=== PATIENT | female | born 1945 | race Caucasian/White ===

== ENCOUNTER 2017-06-22 18:32 | Inpatient (IN) ==
[2017-06-22] MEDS ORDERED: Ipratropium/Albuterol Neb 3 ML IH ONE (18:39)
[2017-06-22] MEDS ORDERED: methylPREDNISolone 125 MG/2 ML VIAL IVP ONE (18:39)
[2017-06-22] MEDS ORDERED: Aspirin 81 MG TAB.CHEW PO ONE (18:43)
--- NOTE | 2017-06-22 18:44 | Emergency Department Note ---
Disposition Clinical Impression: Acute exacerbation of chronic obstructive airways disease, Hypoxia Disposition: Admitted As Inpatient Condition: Fair Time of Disposition: 20:45 SOB HPI - General Chief Complaint: ED Shortness of Breath/Dyspnea Stated Complaint: JUSTIN/shoulder pain Time Seen by Provider: 06/22/17 18:34 Source: patient, family, EMS Mode of arrival: EMS Limitations: no limitations Nursing Notes Reviewed: Yes Vital Signs Reviewed: Yes - History of Present Illness 71-year-old female history of lung cancer in remission for 2 years now radiation approximately 2 years ago presents to the ED with shortness of breath and difficulty in breathing. Patient states this started 2 days ago she said it came on all of a sudden. She has been coughing and having a hard time catching her breath. She has tried her albuterol inhaler with no help. She is not on any oxygen. Patient has never had to be intubated for COPD. Patient states she has never diagnosed as COPD by matches that she has it. Patient is having chest pain says is mainly on the left side but nonradiating says it mainly hurts when she takes a deep breath and is worse when she takes a big deep breath. Said nothing is helping her pain. She is pain is a dull ache approximately 5 out of 10. Patient states that she has been coughing but there has been no productive sputum. She states there is no fevers. She was nauseous on the right in but thinks is most likely due to the squad arrived but there has been no vomiting. Patient otherwise is not having any complaints including headaches, blurry vision, neck pain, back pain, abdominal pain, pain with urination, changes in bowel movements, pain or tingling going down the arms or legs or any other generalized weakness. - Related Data Allergies Allergy/AdvReac Type Severity Reaction Status Date / Time Penicillins Allergy Rash Verified 06/22/17 20:59 Sulfa (Sulfonamide Allergy Rash Verified 06/22/17 20:59 Antibiotics) Review of Systems: 10 point review of systems done and negative unless otherwise stated in history of present illness. All systems ED: reviewed and negative except as stated. Review of Systems: As Per HPI Past Medical History - Past Medical History Attestation: Yes The following information was validated with the patient. Medical history: Reports: asthma, cancer, COPD Psychiatric history: Reports: no psych history - Social History Smoking Status: Current every day smoker Smokeless Tobacco Status: No Alcohol use: Reports: occasionally Drug use: Reports: none Physical Exam - General Limitations: no limitations General appearance: alert, in no apparent distress - Head Head exam: atraumatic, normocephalic, normal inspection - Eye Eye exam: Present: normal appearance, PERRL, EOMI - ENT ENT exam: normal exam, normal oropharynx, mucous membranes moist - Neck Neck exam: Present: normal inspection, full ROM, trachea midline - Chest Chest inspection: Present: normal inspection, symmetric chest wall rise - Respiratory Respiratory exam: Present: wheezes (Bilateral wheezes with decreased breath sounds bilaterally in all lung mercado.), accessory muscle use, prolonged expiratory phase. Absent: respiratory distress, stridor - Cardiovascular Cardiovascular exam: Present: regular rate, normal rhythm, normal heart sounds - Abdominal Exam Abdominal exam: Present: soft, Non-Tender. Absent: tenderness, distention, guarding, rebound, rigidity - Extremities Exam Extremities exam: Present: normal inspection, full ROM, normal capillary refill. Absent: tenderness, pedal edema - Expanded Lower Extremity Exam Neurovascular/Tendon exam: Present: normal capillary refill. Absent: pulse deficit, motor deficit, sensory deficit, tendon deficit - Back Exam Back exam: Present: normal inspection, full ROM. Absent: tenderness, CVA tenderness (R), CVA tenderness (L) - Neurological Exam Neurological exam: Present: alert, oriented X3 - Skin Skin exam: Present: warm, dry, intact, normal color Course Course Narrative: 71-year-old female presented to the ED with difficulty in breathing and shortness of breath. We will do normal COPD exacerbation workup including chest pain workup this will include a CBC, BMP, troponin, lactate, chest x-ray, EKG. We will give patient 125 mg's Solu-Medrol as well as triple DuoNeb treatment. We will reassess after treatment to see if her lung sounds are better. Patient does not meet SIRS criteria at this time. We will forego getting blood cultures and to get the chest x-ray back. Vital Signs Temperature 98.8 F 06/22/17 18:34 Pulse Rate 68 06/22/17 18:34 Respiratory Rate 18 06/22/17 18:34 Blood Pressure 176/95 06/22/17 18:34 O2 Sat by Pulse Oximetry 99 06/22/17 18:34 Temperature 98.1 F 06/24/17 08:44 Pulse Rate 86 06/24/17 08:44 Respiratory Rate 16 06/24/17 08:44 Blood Pressure 118/67 06/24/17 08:44 O2 Sat by Pulse Oximetry 94 06/24/17 08:44 Oxygen Delivery Oxygen Delivery Nasal Cannula Shortness of Breath/Dyspnea - MDM Narrative Medical decision making narrative: 71-year-old female presents to the ED with shortness of breath and hypoxia. She was found at home by EMS to have a oxygen saturation of 82% on room air. She does not have a history of being on oxygen. She has never on home oxygen. She was complaining of chest pain but had a normal troponin as well as normal EKG. This most likely is not cardiac in etiology. She says the pain was worse when she took deep breath. His most likely is pleuritic in etiology. She says she has never been diagnosed with COPD we will believe she has it. She has a history lung cancer with radiation to years ago and currently in remission. We did give patient triple duo nebs as well as Solu-Medrol which did help her breathe a lot better. She was much more clear but still had mild wheezes after that. At this time patient states that she did feel better but felt like she was unable to cough anything up. I did take her off oxygen when she was at 4 L here as she normally is on it at home and her sats dropped to 90% sitting in bed. So patient is hypoxic and felt admission was needed at this time. We did do chest x-ray which was normal not showing any pneumonia. All labs came back normal as well. Patient is being admitted to the hospital service I spoke with Dr. Boyd who agreed to admit the patient to the hospitalist service. Patient is admitted to the hospital service in stable condition. Chest X-Ray 06/22/17 18:39 IMPRESSION: Negative portable study. D/ / Harpre Castellanos Cha, MD / Harper Castellanos Cha, MD Interpreting Provider: Harper Castellanos Cha, MD - Medical Records Medical records reviewed: Yes I reviewed the patient's medical records. - Lab Data Lab results reviewed: Yes I reviewed the patient's lab results. Result diagrams: 06/24/17 01:29 06/24/17 01:29 Lab Results 06/22/17 06/22/17 06/22/17 Range/Units 18:55 18:55 18:55 WBC 9.1 (4.3-11.1) K/mcL RBC 4.78 (3.82-4.97) M/mcL Hgb 15.1 (11.5-15.4) g/dL Hct 45.0 H (35.3-44.9) % MCV 94.1 (83.0-100.0) fL MCH 31.6 (28.0-33.3) pg MCHC 33.6 (31.6-35.5) g/dL RDW 13.2 (11.5-14.5) % Plt Count 263 (140-400) K/mcL MPV 8.8 L (9.4-12.4) fL Immature Gran % 0.5 (0-4) % Seg Neutrophils % 54.4 % Lymphocytes % 24.7 % Monocytes % 7.1 % Eosinophils % 12.5 % Basophils % 0.8 % Neutrophils # 5.0 (1.6-8.9) K/mcL Lymphocytes # 2.3 (0.6-4.6) K/mcL Monocytes # 0.7 (0.0-1.3) K/mcL Eosinophils # 1.1 H (0.0-0.6) K/mcL Basophils # 0.1 (0.0-0.2) K/mcL Sodium 139 (136-145) mEq/L Potassium 4.7 H (3.5-4.5) mEq/L Chloride 102 (98-109) mEq/L Carbon Dioxide 26 (19-29) mEq/L BUN 11 (7-20) mg/dL Creatinine 0.59 (0.57-1.11) mg/dL Est GFR ( Amer) > 60 (> 60) Est GFR (Non-Af Amer) > 60 (> 60) BUN/Creatinine Ratio 19 (6-26) Glucose 97 (70-99) mg/dL Calculated Osmolality 287 (280-300) Calcium 9.0 (8.6-10.8) mg/dL Troponin I 0.01 (0-0.03) ng/mL B-Natriuretic Peptide (0-100) pg/mL 12/08/17 Range/Units 18:55 WBC (4.3-11.1) K/mcL RBC (3.82-4.97) M/mcL Hgb (11.5-15.4) g/dL Hct (35.3-44.9) % MCV (83.0-100.0) fL MCH (28.0-33.3) pg MCHC (31.6-35.5) g/dL RDW (11.5-14.5) % Plt Count (140-400) K/mcL MPV (9.4-12.4) fL Immature Gran % (0-4) % Seg Neutrophils % % Lymphocytes % % Monocytes % % Eosinophils % % Basophils % % Neutrophils # (1.6-8.9) K/mcL Lymphocytes # (0.6-4.6) K/mcL Monocytes # (0.0-1.3) K/mcL Eosinophils # (0.0-0.6) K/mcL Basophils # (0.0-0.2) K/mcL Sodium (136-145) mEq/L Potassium (3.5-4.5) mEq/L Chloride (98-109) mEq/L Carbon Dioxide (19-29) mEq/L BUN (7-20) mg/dL Creatinine (0.57-1.11) mg/dL Est GFR ( Amer) (> 60) Est GFR (Non-Af Amer) (> 60) BUN/Creatinine Ratio (6-26) Glucose (70-99) mg/dL Calculated Osmolality (280-300) Calcium (8.6-10.8) mg/dL Troponin I (0-0.03) ng/mL B-Natriuretic Peptide 87 (0-100) pg/mL - Radiology Data Radiology results reviewed: Yes I reviewed the patient's radiology results. - EKG Data EKG attestation: Yes I reviewed and interpreted this EKG. EKG results narrative: EKG done at 1844 reviewed myself and attending shows normal sinus rhythm at a rate of 64, WA interval 156, QRS 86, QTC 402 with a normal axis. There is no acute ST changes, no acute T-wave abnormalities, no signs of incarcerated hypertrophy, no signs of heart block, no signs of WPW/Brugada syndrome. There is no old EKG to compare with at this time. Attestation Statement - Attestation Attestation: I examined this patient and my medical decision-making was reviewed with the Resident Physician, Dr. Green. I agree with the documented findings, disposition and treatment plan as described except to the extent set forth below. Pt is a 71 yo wf with hx COPD and lung CA which is in remission who presents by EMS today with JUSTIN/SOB and found at home with RA pulse ox 82% and incr work of breathing. Pt denies any F/C, no URI sxs and only occasional nonprod cough. Pt also c/o L sided pleuritic CP which is worse with coughing.Pt is not on home O2 , and never been intubated for JUSTIN. I agree with pt's PE findings as documented. Pt arrived and was maintained on suppl O2 by NC, IV est, and labs sent, EKG performed, and pt was started on aerosols and IV steroids. Pt also had CXR performed. EKG showed SR without ischemia. Pt improved with pulm tx, but remained hypoxic on RA. CXR wnl. Labs unremarkable , including neg BNP and trop. Will admit pt for AECOPD wit hypoxia.
[2017-06-22 19:13] LABS: Basophils # 0.1 K/mcL (0.0-0.2); Basophils % 0.8 %; Eosinophils # 1.1 K/mcL (0.0-0.6); Eosinophils % 12.5 %; Hemoglobin 15.1 g/dL (11.5-15.4); Immature Granulocytes % 0.5 % (0-4); Lymphocytes # 2.3 K/mcL (0.6-4.6); Lymphocytes % 24.7 %; Mean Corpuscular HGB Conc 33.6 g/dL (31.6-35.5); Mean Corpuscular Hemoglobin 31.6 pg (28.0-33.3); Mean Corpuscular Volume 94.1 fL (83.0-100.0); Mean Platelet Volume 8.8 fL (9.4-12.4); Monocytes # 0.7 K/mcL (0.0-1.3); Monocytes % 7.1 %; Platelet Count 263 K/mcL (140-400); Red Blood Count 4.78 M/mcL (3.82-4.97); Red Cell Distribution Width 13.2 % (11.5-14.5); Segmented Neutrophils % 54.4 %
[2017-06-22 19:26] LABS: BUN/Creatinine Ratio 19 (6-26); Blood Urea Nitrogen 11 mg/dL (7-20); Carbon Dioxide 26 mEq/L (19-29); Chloride 102 mEq/L (98-109); Glucose 97 mg/dL (70-99); Osmolality,Calculated 287 (280-300); Potassium 4.7 mEq/L (3.5-4.5); Sodium 139 mEq/L (136-145); eGFR For African Americans > 60 (> 60); eGFR For Non-African Americans > 60 (> 60)
[2017-06-22] MEDS ORDERED: Acetaminophen 325 MG TABLET PO PRN (21:13)
[2017-06-22] MEDS ORDERED: Naloxone 0.4 MG/ML INJ IVP PRN (21:13)
[2017-06-22] MEDS ORDERED: *HR* Morphine 2 MG/ML SYRINGE IVP PRN (21:13)
[2017-06-22] MEDS ORDERED: Ondansetron 4 MG/2 ML VIAL IVP PRN (21:13)
[2017-06-22] MEDS ORDERED: Furosemide 20 MG TABLET PO PRN (21:16)
--- NOTE | 2017-06-22 21:19 | Internal Med History&Physical ---
Date of Encounter: 06/22/17 Time of Encounter: 21:10 Assessment and Plan (1) Acute exacerbation of chronic obstructive airways disease Current visit: Yes Status: Acute Acute hypoxic respiratory failure, secondary to acute exacerbation of COPD Continue DuoNeb breathing treatment, IV Solu-Medrol, O2 via NC Empiric IV Rocephin Chest x-ray - negative Cardiac telemetry, pulse ox, labs in a.m., monitor closely (2) DVT prophylaxis Current visit: Yes Status: Acute Heparin subcutaneous Internal Medicine - H&P: HPI Chief complaint: Shortness of breath Admitted From: Emergency Dept Plans for Post Hospital Care: Home History of present illness: Ms. Mena is a 71 year old female with past history of COPD, cancer and current smoker. Patient presents to the ED with complaints of shortness of breath and cough. Kimble in the room. Patient is awake and alert. Not in any distress. Able to provide all history. No family members at bedside. Patient states she developed shortness of breath and cough about 3-4 days ago. Symptoms gradually worsened. She states her cough is nonproductive. Thinks she does have some phlegm but is unable to bring it up. Symptoms worse with exertion. She has used her friend's nebulizer machine which has helped minimally. Patient decided to come to the ED because of worsening symptoms. She denies chest pain or vomiting or abdominal pain. No fever. Patient states symptoms are severe. No associated symptoms. No other acute complaints. Initial workup in the ED is negative. Chest x-ray is negative. Patient is being admitted for acute COPD exacerbation. Patient has been explained about her condition and plan of care detail. She understood and agreed. No unanswered questions. CODE STATUS full code. Past Med Surg Social Fam HX - Past Medical History Medical history: asthma, cancer, COPD Psychiatric history: no psych history - Social History Smoking Status: Current every day smoker Smokeless Tobacco Status: No Alcohol use: occasionally Drug use: none - Family History Father Hx Family Cardiac Disorders: No Hx Family Respiratory Disorders: Yes (COPD) Hx Family Cancer: No Hx Family GI Disorders: No Hx Family Genitourinary Disorders: No Hx Family Endocrine Disorder: No Hx Family Musculoskeletal Disorders: No Hx Family Neuromuscular Disorders: No Hx Family Neurologic Disorders: No Hx Family HEENT Disorders: No Hx Family Autoimmune Disorders: No Hx Family Reproductive Disorders: No Hx Family Psychosocial Disorders: No Hx Family Medical Disorders: No Internal Medicine - H&P: Meds Albuterol Sulfate [Ventolin Hfa] 2 puff IH Q4H PRN 06/22/17 [History] Furosemide [Lasix] 20 mg PO DAILY PRN 06/22/17 [History] Tramadol HCl [Ultram] 50 mg PO BID PRN 06/22/17 [History] 3 Allergy/AdvReac Type Severity Reaction Status Date / Time Penicillins Allergy Rash Verified 06/22/17 20:59 Sulfa (Sulfonamide Allergy Rash Verified 06/22/17 20:59 Antibiotics) All Systems PM: A 10-system review of systems was performed and is negative for pertinent findings except as documented above in the HPI. - Constitutional Constitutional: fatigue, no fever(s), no weakness - EENT Eyes: no blurry vision - Cardiovascular Cardiovascular ROS IM: dyspnea, dyspnea on exertion, no chest pain, no diaphoresis, no edema, no lightheadedness, no orthopnea, no palpitations, no syncope - Respiratory Respiratory: cough, dyspnea, dyspnea on exertion, wheezing, chest congestion, no hemoptysis - Gastrointestinal Gastrointestinal: no abdominal pain, no cramping, no diarrhea, no dyspepsia, no hematemesis, no hematochezia, no melena, no nausea, no vomiting - Genitourinary Genitourinary: no dysuria - Neurological Neurological ROS: no abnormal gait, no confusion, no dizziness, no loss of vision, no numbness, no tingling - Constitutional Vitals: Temp Pulse Resp BP Pulse Ox 98.8 F 98 20 140/66 97 06/22/17 18:34 06/22/17 20:11 06/22/17 20:11 06/22/17 20:11 06/22/17 20:11 General appearance: Present: cooperative, A&O X 3, pleasant, no acute distress, answers questions appropriately - Head Head exam: Present: atraumatic - Eye Eye exam: Present: EOMI - ENT ENT exam: Present: mucous membranes dry - Respiratory Respiratory exam: Present: wheezes (Mild bilateral). Absent: accessory muscle use, chest wall tenderness, rales, respiratory distress, rhonchi, tachypnea - Cardiovascular Cardiovascular exam: Present: RRR, +S1, +S2 - GI/Abdominal GI/Abdominal exam: Present: soft. Absent: distended, firm, guarding, tenderness - Extremities Exam Extremities exam: Present: radial pulses palpable and symmetrical. Absent: calf tenderness, cyanotic, pedal edema - Neurological Exam Neurological exam: Present: alert, oriented X3, no focal deficits. Absent: facial droop, speech deficit Internal Med - H&P Results - Labs CBC & Chem 7: 06/22/17 18:55 06/22/17 18:55
[2017-06-22] MEDS ORDERED: cefTRIAXone 1,000 MG in Water for inj. (sterile) 10 ML IVP SCH (22:00)
[2017-06-22] MEDS: Ipratropium/Albuterol Neb 3 ML IH SCH (23:24)
[2017-06-22] MEDS: MethylPREDNISolone 40 MG/ML VIAL IVP SCH (23:58)
[2017-06-23] MEDS: Nicotine 14 MG PATCH.TD24 TD SCH ×2 (00:31→07:44)
[2017-06-23] MEDS: Ipratropium/Albuterol Neb 3 ML IH SCH ×6 (03:20→23:18)
[2017-06-23 06:08] LABS: BUN/Creatinine Ratio 16 (6-26); Blood Urea Nitrogen 10 mg/dL (7-20); Calcium 9.4 mg/dL (8.6-10.8); Carbon Dioxide 29 mEq/L (19-29); Chloride 100 mEq/L (98-109); Glucose 176 mg/dL (70-99); Magnesium 1.6 mg/dL (1.6-2.6); Osmolality,Calculated 287 (280-300); Potassium 4.6 mEq/L (3.5-4.5); Sodium 137 mEq/L (136-145); eGFR For African Americans > 60 (> 60); eGFR For Non-African Americans > 60 (> 60)
[2017-06-23] MEDS: *HR* Heparin 5,000 UNIT/ML VIAL SQ SCH ×2 (06:36→17:20)
[2017-06-23] MEDS: MethylPREDNISolone 40 MG/ML VIAL IVP SCH ×3 (07:44→23:57)
[2017-06-23] MEDS: Azithromycin 500 MG in D5% in Water 250 ML IVPB SCH (12:10)
--- NOTE | 2017-06-23 12:12 | Internal Med Progress Note ---
Date of Encounter: 06/23/17 Time of Encounter: 09:00 - Assessment and plan (1) Acute exacerbation of chronic obstructive airways disease Current Visit: Yes Status: Acute Assessment and plan: c/w IV steroids today. Possibly d/c tomorrow on oral prendisone. Change abx to zithromax from rocephin. c/w nebs. wean off O2 as tolerated (2) Tobacco abuse Current Visit: Yes Status: Acute Assessment and plan: Will add a nicotine patch (3) DVT prophylaxis Current Visit: Yes Status: Acute Assessment and plan: heparin SQ - Subjective Interval history: No acute events. Still needing O2. Not on O2 at home. Tobacco user. Afebrile. admitted with COPD exacerbation. Feeling better. Dry cough - Constitutional Vitals: Temp Pulse Resp BP Pulse Ox 98.3 F 81 24 106/63 90 06/23/17 11:25 06/23/17 11:25 06/23/17 11:48 06/23/17 11:25 06/23/17 11:48 General appearance: Present: cachectic, cooperative, A&O X 3, pleasant, no acute distress, answers questions appropriately Exam: GEN: NAD CVS: RRR. S1, S2, No m/r/g RESP: CTAB ABD: Soft, NT, ND, +BS EXT: No edema. 2+ DP, No rashes NEURO: Nonfocal Internal Medicine: Result - Labs CBC & Chem 7: 06/22/17 18:55 06/23/17 05:38 Labs: BMP 06/23/17 05:38 Sodium 137 Potassium 4.6 H Chloride 100 Carbon Dioxide 29 BUN 10 Creatinine 0.63 Glucose 176 H Calcium 9.4 Consult Discharge Plan - Plan Referrals: Caleb Duenas MD [Primary Care Provider] -
[2017-06-23] MEDS: Nicotine 21 MG PATCH.TD24 TD SCH (12:18)
[2017-06-23] MEDS ORDERED: Menthol 9.1 MG LOZENGE PO PRN (22:24)
[2017-06-24 01:38] LABS: Basophils % 0.1 %; Hematocrit 41.4 % (35.3-44.9); Immature Granulocytes % 0.6 % (0-4); Lymphocytes # 0.8 K/mcL (0.6-4.6); Lymphocytes % 3.5 %; Mean Corpuscular HGB Conc 33.8 g/dL (31.6-35.5); Mean Corpuscular Hemoglobin 31.5 pg (28.0-33.3); Mean Corpuscular Volume 93.2 fL (83.0-100.0); Mean Platelet Volume 8.9 fL (9.4-12.4); Monocytes # 0.6 K/mcL (0.0-1.3); Monocytes % 2.9 %; Platelet Count 289 K/mcL (140-400); Red Blood Count 4.44 M/mcL (3.82-4.97); Red Cell Distribution Width 13.2 % (11.5-14.5); Segmented Neutrophils % 92.9 %
[2017-06-24 01:50] LABS: BUN/Creatinine Ratio 23 (6-26); Blood Urea Nitrogen 15 mg/dL (7-20); Carbon Dioxide 27 mEq/L (19-29); Chloride 102 mEq/L (98-109); Glucose 138 mg/dL (70-99); Osmolality,Calculated 291 (280-300); Potassium 3.9 mEq/L (3.5-4.5); Sodium 139 mEq/L (136-145); eGFR For African Americans > 60 (> 60); eGFR For Non-African Americans > 60 (> 60)
[2017-06-24] MEDS: Ipratropium/Albuterol Neb 3 ML IH SCH ×6 (03:52→23:10)
[2017-06-24] MEDS: *HR* Heparin 5,000 UNIT/ML VIAL SQ SCH ×2 (05:55→17:04)
[2017-06-24] MEDS: Nicotine 14 MG PATCH.TD24 TD SCH (07:39)
[2017-06-24] MEDS: Nicotine 21 MG PATCH.TD24 TD SCH (07:51)
[2017-06-24] MEDS: MethylPREDNISolone 40 MG/ML VIAL IVP SCH ×2 (07:51→17:04)
[2017-06-24] MEDS: Azithromycin 500 MG in D5% in Water 250 ML IVPB SCH (07:52)
--- NOTE | 2017-06-24 11:02 | Internal Med Progress Note ---
Date of Encounter: 06/24/17 Time of Encounter: 09:00 - Assessment and plan (1) Acute exacerbation of chronic obstructive airways disease Current Visit: Yes Status: Acute Assessment and plan: c/w IV steroids today. We will wean her IV steroids to every 12 hours today. Not ready for discharge. We will try to wean her off oxygen. Continue with Zithromax. Continue with nebs. Possibly d/c tomorrow on oral prendisone. (2) Tobacco abuse Current Visit: Yes Status: Acute Assessment and plan: Will add a nicotine patch (3) DVT prophylaxis Current Visit: Yes Status: Acute Assessment and plan: heparin SQ - Subjective Interval history: No acute events. Still needing O2. Not on O2 at home. She is having significant cough spells. Nonproductive. Afebrile. - Constitutional Vitals: Temp Pulse Resp BP Pulse Ox 98.1 F 86 16 118/67 94 06/24/17 08:44 06/24/17 08:44 06/24/17 08:44 06/24/17 08:44 06/24/17 08:44 General appearance: Present: cachectic, cooperative, A&O X 3, pleasant, no acute distress, answers questions appropriately Exam: GEN: NAD CVS: RRR. S1, S2, No m/r/g RESP: diminished ABD: Soft, NT, ND, +BS EXT: No edema. 2+ DP, No rashes NEURO: Nonfocal Internal Medicine: Result - Labs CBC & Chem 7: 06/24/17 01:29 06/24/17 01:29 Labs: Short CBC 06/24/17 Range/Units 01:29 WBC 21.5 H D (4.3-11.1) K/mcL Hgb 14.0 (11.5-15.4) g/dL Hct 41.4 (35.3-44.9) % Plt Count 289 (140-400) K/mcL Neutrophils # 20.0 H (1.6-8.9) K/mcL BMP 06/24/17 01:29 Sodium 139 Potassium 3.9 Chloride 102 Carbon Dioxide 27 BUN 15 Creatinine 0.66 Glucose 138 H Calcium 10.0 Consult Discharge Plan - Plan Referrals: Caleb Duenas MD [Primary Care Provider] -
[2017-06-24] MEDS: GuaiFENesin Liq 200 MG/10 ML UDC PO SCH ×3 (11:28→23:50)
--- NOTE | 2017-06-25 02:19 | Electrocardiograph Report ---
[place] [id number] Test Date: 2017-06-22 Pat Name: Zohra Mena Department: 103 Room: 3B12 Gender: F Tobacco Classer: KAYLIE : 1945 Requested By: Chris Green Order Number: [id number] Reading MD: Kirill Cruz MD Measurements Intervals Cable Rate: 64 P: 74 MA: 156 QRS: 52 QRSD: 86 T: 72 QT: 392 QTc: 402 Interpretive Statements SINUS RHYTHM Electronically Signed On 06-25-2017 2:17:15 EST by Kirill Cruz MD
[2017-06-25] MEDS: Ipratropium/Albuterol Neb 3 ML IH SCH ×2 (03:49→07:34)
[2017-06-25 04:45] LABS: Basophils % 0.2 %; Hematocrit 42.9 % (35.3-44.9); Hemoglobin 14.2 g/dL (11.5-15.4); Immature Granulocytes % 0.8 % (0-4); Lymphocytes # 1.2 K/mcL (0.6-4.6); Lymphocytes % 6.8 %; Mean Corpuscular HGB Conc 33.1 g/dL (31.6-35.5); Mean Corpuscular Hemoglobin 30.9 pg (28.0-33.3); Mean Corpuscular Volume 93.3 fL (83.0-100.0); Mean Platelet Volume 8.9 fL (9.4-12.4); Monocytes # 0.7 K/mcL (0.0-1.3); Neutrophils # 15.9 K/mcL (1.6-8.9); Platelet Count 290 K/mcL (140-400); Red Cell Distribution Width 13.6 % (11.5-14.5); Segmented Neutrophils % 88.2 %
[2017-06-25 04:57] LABS: BUN/Creatinine Ratio 24 (6-26); Blood Urea Nitrogen 15 mg/dL (7-20); Calcium 9.5 mg/dL (8.6-10.8); Carbon Dioxide 31 mEq/L (19-29); Chloride 101 mEq/L (98-109); Glucose 128 mg/dL (70-99); Osmolality,Calculated 292 (280-300); Potassium 4.5 mEq/L (3.5-4.5); Sodium 140 mEq/L (136-145); eGFR For African Americans > 60 (> 60); eGFR For Non-African Americans > 60 (> 60)
[2017-06-25] MEDS: MethylPREDNISolone 40 MG/ML VIAL IVP SCH (06:06)
[2017-06-25] MEDS: *HR* Heparin 5,000 UNIT/ML VIAL SQ SCH (06:06)
[2017-06-25] MEDS: GuaiFENesin Liq 200 MG/10 ML UDC PO SCH (06:06)
[2017-06-25 06:51] VITALS: BP 120/69
--- NOTE | 2017-06-25 07:31 | Discharge Summary ---
Date of Encounter: 06/26/17 Time of Encounter: 07:15 - Discharge Diagnosis (1) Acute exacerbation of chronic obstructive airways disease Priority: Primary Status: Acute (2) Tobacco abuse Priority: Primary Status: Acute (3) Bronchitis Priority: Primary Status: Acute - Discharge Medications Prescriptions: Ipratropium/Albuterol Neb [Duoneb] 3 ml IH [id number] PRN #10 inhsol PRN Reason: Shortness Of Breath GuaiFENesin Liq [Robitussin Liq] 200 mg PO Q6HR #10 udc Albuterol Sulfate [Ventolin Hfa] 2 puff IH Q4H PRN #10 hfa.aer.ad PRN Reason: Shortness Of Breath Azithromycin [Zithromax Tri-Isrrael] 500 mg PO DAILY #2 tablet Menthol [Cough Drops] 9.1 mg PO Q2H PRN #30 lozenge PRN Reason: Cough Nicotine Patch [Nicoderm] 14 mg TD DAILY #30 patch.td24 predniSONE [PredniSONE] See Taper PO DAILY #36 tablet Home Medications: Furosemide [Lasix] 20 mg PO DAILY PRN 06/22/17 [History] Tramadol HCl [Ultram] 50 mg PO BID PRN 06/22/17 [History] Albuterol Sulfate [Ventolin Hfa] 2 puff IH Q4H PRN #10 hfa.aer.ad 06/25/17 [Rx] Azithromycin [Zithromax Tri-Isrrael] 500 mg PO DAILY #2 tablet 06/25/17 [Rx] GuaiFENesin Liq [Robitussin Liq] 200 mg PO Q6HR #10 udc 06/25/17 [Rx] Ipratropium/Albuterol Neb [Duoneb] 3 ml IH [id number] PRN #10 inhsol 06/25/17 [Rx] Menthol [Cough Drops] 9.1 mg PO Q2H PRN #30 lozenge 06/25/17 [Rx] Nicotine Patch [Nicoderm] 14 mg TD DAILY #30 patch.td24 06/25/17 [Rx] predniSONE [PredniSONE] See Taper PO DAILY #36 tablet 06/25/17 [Rx] Allergies/Adverse Reactions: 3 Allergy/AdvReac Type Severity Reaction Status Date / Time Penicillins Allergy Rash Verified 06/22/17 20:59 Sulfa (Sulfonamide Allergy Rash Verified 06/22/17 20:59 Antibiotics) Date of admission: 06/22/17 22:28 Primary care physician: Caleb Peterson - Patient Status Disposition: Home, Self-Care Overall status at discharge: patient is back to baseline - Discharge Instructions Instructions: Prednisone (By mouth), Guaifenesin (By mouth), Azithromycin (By mouth), Ipratropium/Albuterol (By breathing), Chronic Obstructive Pulmonary Disease (DC) Follow Up With: Caleb Duenas MD [Primary Care Provider] - 07/02/17 3:45 pm - Diet and Activity Activity: resume usual activities as tolerated Diet: regular diet Hospital course: Ms. Mena is a 71 year old female with past history of COPD, cancer and current smoker. Patient presents to the ED with complaints of shortness of breath and cough. Initial workup in the ED is negative. Chest x-ray is negative. Patient was admitted for acute COPD exacerbation. She was provided IV steroids as well as IV Zithromax. She did well while she was hospitalized. We controlled her coughing symptomatically. She received a couple of days of IV steroids and into being discharged on oral steroids taper. I did give the patient prescription for nebulizer as well as nebulizer treatments on day of discharge on 06/25/2017 - Time Spent with Patient Total time spent providing and/or coordinating discharge services: - Constitutional Vitals: Temp Pulse Resp BP Pulse Ox 97.9 F 79 17 120/69 93 06/25/17 06:50 06/25/17 06:50 06/25/17 06:50 06/25/17 06:50 06/25/17 06:50 General appearance: Present: cachectic, cooperative, A&O X 3, pleasant, no acute distress, answers questions appropriately
[2017-06-25] MEDS ORDERED: Azithromycin 500 MG VIAL IVPB ONE (09:07)
[2017-06-25] MEDS: Nicotine 14 MG PATCH.TD24 TD SCH (09:11)
[2017-06-25] MEDS: Nicotine 21 MG PATCH.TD24 TD SCH (09:13)
[2017-06-25] MEDS: Azithromycin 500 MG in D5% in Water 250 ML IVPB SCH (09:14)
[2017-06-25] MEDS ORDERED: FLUARIX QUAD 2017-18 36MOS UP/PF 0.5 ML SYRINGE IM ONE (09:18)
== END 2017-06-25 11:15 | disposition home or self-care (01) | DRG 190 ==
LOC: EMEROO 18:32 → 3BNU 18:32 → SUATTDRO 22:28
PROVIDERS: ADMIT Internal Medicine; ATTEND Internal Medicine

== ENCOUNTER 2017-08-06 09:08 | Observation (INO) ==
[2017-08-06] MEDS ORDERED: methylPREDNISolone 125 MG/2 ML VIAL IVP ONE (09:12)
[2017-08-06] MEDS ORDERED: Ipratropium/Albuterol Neb 3 ML IH ONE ×2 (09:12→14:36)
--- NOTE | 2017-08-06 09:26 | Emergency Department Note ---
Addendum entered and electronically signed by Chris Green DO 08/06/17 14:13: the CT came back only showing nasal bone fractures about 4 or 5 days old so there is no need for further treatment to be done for that. Patient was going to [facility] but due to patient needed be on telemetry they are unable to sufficiently care for the patient on telemetry there. At that time I contacted our hospitalist Dr. Ndiaye and spoke with him about getting the patient here. He agreed to admit the patient here. Patient is admitted in stable condition to our hospital service. Original Note: Disposition Clinical Impression: Acute exacerbation of chronic obstructive airways disease, Hypoxia Disposition: Admitted As Inpatient Condition: Fair Time of Disposition: 14:16 SOB HPI - General Chief Complaint: ED Shortness of Breath/Dyspnea Stated Complaint: JUSTIN Time Seen by Provider: 08/06/17 09:12 Source: patient, EMS Mode of arrival: EMS Limitations: no limitations Nursing Notes Reviewed: Yes Vital Signs Reviewed: Yes - History of Present Illness 72-year-old female presents to the emergency department complaining of shortness of breath. Patient states she woke up this morning on a hard time breathing. Says she has having no chest pain. Patient did state that she fell out of bed while trying to roll over last that she did hit her head against the table but did not lose consciousness she said she was not seen by the doctor She did not want to get out of her house. She says the main reason that she is here is because of the shortness of breath. She has a history of COPD does not have oxygen or a BiPAP machine at home. She does have a nebulizer says she uses regularly. Never had to be intubated due to COPD. She is not complaining of any chest pain, nausea, vomiting. She said that she has felt feverish but not checked her fever. She has had minor chills for the last 2 days. Patient is not having any other complaints including headaches, blurry vision, neck pain, back pain, chest pain, abdominal pain, change in bowel movement, pain with urination, pain or tingling down the arms or legs or generalized weakness or increased weight loss. Patient does have history of lung cancer said her last treatment was many years ago she is currently in remission. Patient otherwise says that she has no cardiac issues or any other complaints. - Related Data Home Medications Medication Instructions Recorded Confirmed Furosemide [Lasix] 20 mg PO DAILY PRN 06/22/17 08/06/17 Tramadol HCl [Ultram] 50 mg PO BID PRN 06/22/17 08/06/17 Previous Rx's Medication Instructions Recorded Albuterol Sulfate [Ventolin Hfa] 2 puff IH Q4H PRN #10 hfa.aer.ad 06/25/17 Ipratropium/Albuterol Neb [Duoneb] 3 ml IH [id number] PRN #10 inhsol 06/25/17 Nicotine Patch [Nicoderm] 14 mg TD DAILY #30 patch.[email or web address] 06/25/17 Allergies Allergy/AdvReac Type Severity Reaction Status Date / Time Penicillins Allergy Rash Verified 08/06/17 09:24 Sulfa (Sulfonamide Allergy Rash Verified 08/06/17 09:24 Antibiotics) Review of Systems: 10 point review of systems done and negative unless otherwise stated in history of present illness. All systems ED: reviewed and negative except as stated. Review of Systems: As Per HPI Past Medical History - Past Medical History Attestation: Yes The following information was validated with the patient. Medical history: Reports: asthma, cancer, COPD Psychiatric history: Reports: no psych history - Social History Smoking Status: Current every day smoker Smokeless Tobacco Status: No Alcohol use: Reports: occasionally Drug use: Reports: none Physical Exam - General Limitations: no limitations General appearance: alert, in no apparent distress - Head Head exam: atraumatic, normocephalic, normal inspection - Eye Eye exam: Present: normal appearance, PERRL, EOMI - ENT ENT exam: normal exam, normal oropharynx, mucous membranes moist - Neck Neck exam: Present: normal inspection, full ROM, trachea midline - Chest Chest inspection: Present: normal inspection, symmetric chest wall rise - Respiratory Respiratory exam: Present: normal lung sounds bilaterally, wheezes. Absent: respiratory distress, stridor, accessory muscle use - Cardiovascular Cardiovascular exam: Present: regular rate, normal rhythm, normal heart sounds - Abdominal Exam Abdominal exam: Present: soft, Non-Tender. Absent: tenderness, distention, guarding, rebound, rigidity - Extremities Exam Extremities exam: Present: normal inspection, full ROM. Absent: tenderness, pedal edema - Expanded Lower Extremity Exam Neurovascular/Tendon exam: Present: normal capillary refill. Absent: pulse deficit, motor deficit, sensory deficit, tendon deficit - Back Exam Back exam: Present: normal inspection, full ROM. Absent: tenderness, CVA tenderness (R), CVA tenderness (L) - Neurological Exam Neurological exam: Present: alert, oriented X3 - Expanded Neurological Exam Patient oriented to: Present: person, place, time Speech: Present: fluid speech Upper motor neuron exam: kamilah neglect: Absent bilaterally, pronator drift: Absent bilaterally Sensory exam upper extremity: light touch: Normal Sensory exam lower extremity: light touch: Normal Coma Scale Eye Opening: Spontaneous Coma Scale Motor Response: Obeys Commands Coma Scale Verbal Response: Oriented Coma Scale Total: 15 - Skin Skin exam: Present: warm, dry, intact, normal color Course Course Narrative: 72-year-old female presented to the emergency department with shortness of breath. She was given 1 DuoNeb treatment by EMS prior to her arrival. After listening to her she did have slight wheezes but still had symptoms will give her a double DuoNeb treatment here. We will also give her steroids. We will start an IV and get blood cultures including CBC, CMP, lactate, BNP. We will also get chest x-ray and EKG. Patient's most likely disposition at this point most likely will be admission due to hypoxia. Vital Signs Temperature 97.4 F L 08/06/17 09:11 Pulse Rate 81 08/06/17 09:11 Respiratory Rate 18 08/06/17 09:11 Blood Pressure 125/65 08/06/17 09:11 O2 Sat by Pulse Oximetry 89 08/06/17 09:11 Temperature 97.4 F L 08/06/17 09:11 Pulse Rate 82 08/06/17 13:12 Respiratory Rate 16 08/06/17 13:12 Blood Pressure 120/47 08/06/17 13:12 O2 Sat by Pulse Oximetry 94 08/06/17 13:12 Oxygen Delivery Oxygen Delivery Nasal Cannula Shortness of Breath/Dyspnea - MDM Narrative Medical decision making narrative: 72-year-old female presented to the emergency department complaining of shortness of breath. She does have COPD history. She did get a breathing treatment by EMS on her way in. We did give her double treatment after that which helped her breathe much better. She was still satting at 92% on 4 L oxygen she normally does not use oxygen. Chest x-ray came back showing no acute abnormalities all labs came back showing no acute abnormalities. Patient most likely has a COPD exacerbation. We did give patient Solu-Medrol as well. We started her on IV Levaquin for prophylactics for pneumonia. We did give CTs of the cervical spine as well as as the head and face these came back showing no acute abnormalities. These were due to a fall from . She is not on any blood thinners. We did here from family that she is a chronic alcoholic. Although patient has not admitted to it. Due to our hospital being full we transfer the patient to [facility] and spoke with Dr. Dennis the hospitalist who agreed to admit the patient to their service. Patient is admitted in stable condition. Chest X-Ray 08/06/17 09:12 IMPRESSION: 1. Left upper lobe density. In a patient with a history of lung cancer, consider CT for further evaluation. 2. Emphysema. D/ / Gagan Keith MD / Gagan Keith MD Interpreting Provider: Gagan Keith MD Cervical Spine CT 08/06/17 09:15 IMPRESSION: Multilevel degenerative disc disease and facet arthropathy within the cervical spine. No convincing evidence for acute fracture or malalignment. Left apical pleural thickening/scarring, incompletely included on the provided images. D/ / Javed Thayer MD / Javed Thayer MD Interpreting Provider: Javed Thayer MD Face CT 08/06/17 09:15 IMPRESSION: Acute traumatic comminuted fracture of the nasal bones with displacement and angulation. There is nondisplaced fracture involvement of the inferior frontal bone at level of inferior frontal sinus. Fracture involvement of the anterior bony nasal septum. The nasal spine and maxilla appear intact. D/ / Rusty Pedraza MD / Rusty Pedraza MD Interpreting Provider: Rusty Pedraza MD Head CT 08/06/17 09:15 IMPRESSION: 1. No acute intracranial abnormality. 2. Mild chronic microvascular ischemic change. 3. Scattered atherosclerosis of the intracranial vasculature. 4. Somewhat comminuted nasal bone fractures with leftward displacement. D/ / Grant Anderson MD / Grant Anderson MD Interpreting Provider: rGant Anderson MD - Medical Records Medical records reviewed: Yes I reviewed the patient's medical records. - Lab Data Lab results reviewed: Yes I reviewed the patient's lab results. Result diagrams: 08/06/17 09:36 08/06/17 09:36 Lab Results 08/06/17 08/06/17 08/06/17 Range/Units 09:36 09:36 09:36 WBC 11.8 H (4.3-11.1) K/mcL RBC 4.73 (3.82-4.97) M/mcL Hgb 14.3 (11.5-15.4) g/dL Hct 44.1 (35.3-44.9) % MCV 93.2 (83.0-100.0) fL MCH 30.2 (28.0-33.3) pg MCHC 32.4 (31.6-35.5) g/dL RDW 13.0 (11.5-14.5) % Plt Count 232 (140-400) K/mcL MPV 9.1 L (9.4-12.4) fL Immature Gran % 0.5 (0-4) % Seg Neutrophils % 62.2 % Lymphocytes % 18.3 % Monocytes % 7.7 % Eosinophils % 10.5 % Basophils % 0.8 % Neutrophils # 7.3 (1.6-8.9) K/mcL Lymphocytes # 2.2 (0.6-4.6) K/mcL Monocytes # 0.9 (0.0-1.3) K/mcL Eosinophils # 1.2 H (0.0-0.6) K/mcL Basophils # 0.1 (0.0-0.2) K/mcL PT (9.4-12.1) Seconds INR APTT (26.0-36.0) Seconds Sodium 139 (136-145) mEq/L Potassium 3.5 (3.5-5.1) mEq/L Chloride 102 (98-107) mEq/L Carbon Dioxide 28 (23-29) mEq/L BUN 12 (8-23) mg/dL Creatinine 0.58 L (0.60-1.20) mg/dL Est GFR ( Amer) > 60 (> 60) Est GFR (Non-Af Amer) > 60 (> 60) BUN/Creatinine Ratio 21 (6-26) Glucose 102 (70-105) mg/dL Calculated Osmolality 288 (280-300) Lactic Acid 1.2 (0.5-2.2) mmol/L Calcium 9.4 (8.6-10.3) mg/dL Troponin I (< 0.04) ng/mL B-Natriuretic Peptide (Less than 100) pg/mL 08/06/17 08/06/17 08/06/17 Range/Units 09:36 09:36 09:36 WBC (4.3-11.1) K/mcL RBC (3.82-4.97) M/mcL Hgb (11.5-15.4) g/dL Hct (35.3-44.9) % MCV (83.0-100.0) fL MCH (28.0-33.3) pg MCHC (31.6-35.5) g/dL RDW (11.5-14.5) % Plt Count (140-400) K/mcL MPV (9.4-12.4) fL Immature Gran % (0-4) % Seg Neutrophils % % Lymphocytes % % Monocytes % % Eosinophils % % Basophils % % Neutrophils # (1.6-8.9) K/mcL Lymphocytes # (0.6-4.6) K/mcL Monocytes # (0.0-1.3) K/mcL Eosinophils # (0.0-0.6) K/mcL Basophils # (0.0-0.2) K/mcL PT 11.5 (9.4-12.1) Seconds INR 1.1 APTT 28.7 (26.0-36.0) Seconds Sodium (136-145) mEq/L Potassium (3.5-5.1) mEq/L Chloride (98-107) mEq/L Carbon Dioxide (23-29) mEq/L BUN (8-23) mg/dL Creatinine (0.60-1.20) mg/dL Est GFR ( Amer) (> 60) Est GFR (Non-Af Amer) (> 60) BUN/Creatinine Ratio (6-26) Glucose (70-105) mg/dL Calculated Osmolality (280-300) Lactic Acid (0.5-2.2) mmol/L Calcium (8.6-10.3) mg/dL Troponin I < 0.03 (< 0.04) ng/mL B-Natriuretic Peptide 19 (Less than 100) pg/mL - Radiology Data Radiology results reviewed: Yes I reviewed the patient's radiology results. - EKG Data EKG attestation: Yes I reviewed and interpreted this EKG. EKG results narrative: EKG done at 04 11 reviewed by myself and the attending shows multifocal atrial tachycardia at a rate of 75, QRS 90, QTC 410 with a normal axis. There is no acute ST changes no acute T-wave changes or any other signs of ischemia. No signs of heart strain or hypertrophy or heart block. This does not seem look like atrial fibrillation or noticeable P waves. There is no old EKG compare with. Attestation Statement - Attestation Attestation: I, Shun Gutierrez DO, examined this patient [id number] and my medical decision-making was reviewed with Dr. Chris Green, Resident Physician. I agree with the documented findings, disposition and treatment plan as described except to the extent set forth below. Please see my progress notes for details. 71-year-old female presents emergency room by EMS for evaluation of shortness of breath. Daughter came to see her this morning was concerned about how hard she is working to breathe. Patient fell approximately 4 days ago hitting her face in the right side of her head. She declined being evaluated on the emergency room at that time. Patient has not had any change in mentation. She is currently on any blood thinners. She has a history of COPD and requires at home breathing treatments but has no oxygen requirement at home. Patient has been coughing more and has not been able to take deep breaths that she typically does. She is currently denying any chest pain fevers chills nausea vomiting or diarrhea. Denies any headache or vision change. Her main complaint is a shortness of breath is worse or today. EMS found her to be in the mid 80s by pulse ox on arrival. The parotid oxygen and breathing treatment and her pulse ox came up to 95. On arrival here patient is on 2 L of oxygen and has a pulse ox of 9091%. Physical exam is a frail-appearing female with a right sided hematoma around the eye. She also has a leftward deviated nasal bone is most likely from a fall. She has no signs of fresh ocular muscle entrapment her pupils are equal round and reactive. Extraocular muscles are intact. Oral mucosa is patent. She has no midline tenderness of cervical thoracic or lumbar spine. Her lungs are clear but diminished aeration with no audible wheezing at this time. Abdomen is soft nontender nondistended. Patient moves all four extremities and denies any pain or symptoms in her extremities at this time. No signs of pitting edema noted on exam. Patient will be evaluated for COPD exacerbation causing hypoxia will also CT her head and her neck secondary to the fall on the present symptoms. The nasal fracture will most likely be a non-emergent issue can follow up with ENT. Disposition will most likely be admission to the hospital for definitive management and treatment course. EKG is read as atrial fibrillation with visible P waves is could be consistent with multifocal atrial tachycardia secondary to her COPD. Treatment steroids and antibiotics will be ordered as needed. Breathing treatments and steroid ordered initially. Antibiotics to be around as needed. No critical care applied to this patient at this time. See detailed documentation of the physical exam, medical intervention, medical decision- making and the resident physician's note 1000 Patient is otherwise stable this time. Treatments are helping with the symptoms. Patient has left upper lobe mass that could be secondary to previous cancer history versus pneumonia. Patient will be started on antibiotic. She will require admission for COPD exacerbation and hypoxia. We do not have bed availability this was so this time so transfer will be established for symptomatic control and treatment. 1215 Patient was accepted in onset facility for further management of COPD and hypoxia. CT imaging of the head confirms stable nasal bone fracture and small frontal bone fracture this time. No surgical intervention required at this point. Patient will be transferred outside facility for definitive management. Patient does have a known history of alcohol abuse and she did not disclose initially. Currently she is denying any other symptoms or complaints she has no pain or other issues. She is breathing through both bilateral nostrils. The head injury was sustained 4-5 days ago and secondary to his presentation symptoms and time parameters low clinical suspicion for acute cranial pathology as well as a lack of need for intervention at this point. Patient otherwise stable treated symptomatically for COPD exacerbation. 1400 Patient was unable to be accepting of the outside facility for management. Patient will be accepted our facility on the rehabilitation bed availability.
[2017-08-06 10:01] LABS: Basophils # 0.1 K/mcL (0.0-0.2); Basophils % 0.8 %; Eosinophils # 1.2 K/mcL (0.0-0.6); Eosinophils % 10.5 %; Hematocrit 44.1 % (35.3-44.9); Hemoglobin 14.3 g/dL (11.5-15.4); Immature Granulocytes % 0.5 % (0-4); Lymphocytes # 2.2 K/mcL (0.6-4.6); Lymphocytes % 18.3 %; Mean Corpuscular HGB Conc 32.4 g/dL (31.6-35.5); Mean Corpuscular Hemoglobin 30.2 pg (28.0-33.3); Mean Corpuscular Volume 93.2 fL (83.0-100.0); Mean Platelet Volume 9.1 fL (9.4-12.4); Monocytes # 0.9 K/mcL (0.0-1.3); Monocytes % 7.7 %; Neutrophils # 7.3 K/mcL (1.6-8.9); Platelet Count 232 K/mcL (140-400); Red Blood Count 4.73 M/mcL (3.82-4.97); Segmented Neutrophils % 62.2 %
[2017-08-06 10:05] LABS: INR 1.1; Prothrombin Time 11.5 Seconds (9.4-12.1)
[2017-08-06 10:06] LABS: BUN/Creatinine Ratio 21 (6-26); Blood Urea Nitrogen 12 mg/dL (8-23); Calcium 9.4 mg/dL (8.6-10.3); Carbon Dioxide 28 mEq/L (23-29); Chloride 102 mEq/L (98-107); Glucose 102 mg/dL (70-105); Osmolality,Calculated 288 (280-300); Potassium 3.5 mEq/L (3.5-5.1); Sodium 139 mEq/L (136-145); eGFR For African Americans > 60 (> 60); eGFR For Non-African Americans > 60 (> 60)
[2017-08-06 10:08] LABS: Activated Partial Thrombo Time 28.7 Seconds (26.0-36.0)
[2017-08-06] MEDS ORDERED: Levofloxacin 750 MG/150 ML 750 MG/150 ML BAG IVPB ONE (10:09)
[2017-08-06] MEDS ORDERED: Ipratropium/Albuterol Neb 3 ML ONE (14:39)
[2017-08-06] MEDS ORDERED: Acetaminophen 325 MG TABLET PO PRN (14:41)
[2017-08-06] MEDS ORDERED: Ondansetron 4 MG/2 ML VIAL IVP PRN (14:41)
[2017-08-06] MEDS ORDERED: Naloxone 0.4 MG/ML INJ IVP PRN (14:41)
[2017-08-06] MEDS ORDERED: Albuterol 2.5 MG/3 ML NEBULIZER IH PRN (14:42)
[2017-08-06] MEDS ORDERED: traMADol 50 MG TABLET PO PRN (14:43)
--- NOTE | 2017-08-06 15:12 | Internal Med History&Physical ---
Date of Encounter: 08/06/17 Time of Encounter: 15:07 Assessment and Plan (1) Acute exacerbation of chronic obstructive airways disease Current visit: Yes Status: Acute 1 patient has history of COPD he has been experiencing increasing shortness of breath over the past few days. She was hypoxic on presentation with SPO2 85% x- ray with COPD changes. We will continue with oxygen titrated to maintain SPO2 greater than 92% 2 continuous SPO2 monitoring 3 bronchodilators 4 Solu-Medrol 60 mg every 6 hours IV 5 Tessalon Perles as needed for cough 6 azithromycin (2) Acute and chronic respiratory failure Current visit: Yes Status: Acute Patient presented in respiratory distress with SPO2 85% on room air patient normally does not wear oxygen at home. Suspect her story failure related to COPD exacerbation. Continue with oxygen titrated maintenance. 2. 92% Qualifiers: Respiratory failure complication: hypoxia Qualified Code(s): J96.21 - Acute and chronic respiratory failure with hypoxia (3) Nasal bone fracture Current visit: Yes Status: Acute Patient rolled over and fell on the bed approximately 5 days ago-she hit her head on a side table-she did not seek immediate medical attention CT of head did not show nasal bone fracture and small frontal bone fracture. Presently stable at this time no surgical intervention required at this time We will have patient follow-up with ENT as outpatient Qualifiers: Encounter type: initial encounter Fracture type: closed Qualified Code(s) : S02.2XXA - Fracture of nasal bones, initial encounter for closed fracture (4) DVT prophylaxis Current visit: No Status: Acute Lovenox [facility] Internal Medicine - H&P: HPI Chief complaint: SOB Admitted From: Emergency Dept Plans for Post Hospital Care: Home History of present illness: Ms. Mena is a 72 year old female past medical history of COPD lung cancer. On patient's fell out of bed while trying to roll over she hit her head against a table but did not lose consciousness she did not seek medical attention after fall. Patient has been experiencing progressively worsening shortness of breath over the past few days. She does have nebulizers and use them regularly without much improvement she denies any fevers nausea vomiting or diarrhea. She has had some chills over the last 2 days denies any chest pain or abdominal pain. Patient does have a history of lung cancer her last treatment was many years ago and she is currently in remission This a.m. she woke up having difficulty breathing she presented to the ER with the above complaints. Upon presentation patient was 85% on room air she is placed on oxygen and was given nebulizer treatments as well as steroids. Chest x-ray demonstrates left upper lobe mass patient has a previous history of cancer questionable pneumonia. CT imaging of head confirms stable nasal bone fracture and small frontal bone fracture she has been admitted for further workup and evaluation. Presently patient appears to be in some mild respiratory distress S PO2 85%. She is off her oxygen placed back on 2 L and patient improved to 90- 91%. Patient is having episodes of coughing, and conversational dyspnea. I feel is his with Dr. Hassan who agrees with plan. Past Med Surg Social Fam HX - Past Medical History Medical history: asthma, cancer, COPD Psychiatric history: no psych history - Social History Smoking Status: Current every day smoker Smokeless Tobacco Status: No Alcohol use: occasionally Drug use: none - Family History Father Hx Family Cardiac Disorders: No Hx Family Respiratory Disorders: Yes (COPD) Hx Family Cancer: No Hx Family GI Disorders: No Hx Family Endocrine Disorder: No Hx Family Neuromuscular Disorders: No Hx Family Neurologic Disorders: No Hx Family HEENT Disorders: No Hx Family Autoimmune Disorders: No Internal Medicine - H&P: Meds Furosemide [Lasix] 20 mg PO DAILY PRN 06/22/17 [History] Tramadol HCl [Ultram] 50 mg PO BID PRN 06/22/17 [History] Albuterol Sulfate [Ventolin Hfa] 2 puff IH Q4H PRN #10 hfa.aer.ad 06/25/17 [Rx] Ipratropium/Albuterol Neb [Duoneb] 3 ml IH [id number] PRN #10 inhsol 06/25/17 [Rx] Nicotine Patch [Nicoderm] 14 mg TD DAILY #30 patch.[email or web address] 06/25/17 [Rx] 3 Allergy/AdvReac Type Severity Reaction Status Date / Time Penicillins Allergy Rash Verified 08/06/17 09:24 Sulfa (Sulfonamide Allergy Rash Verified 08/06/17 09:24 Antibiotics) ROS unobtainable: other All Systems PM: A 10-system review of systems was performed and is negative for pertinent findings except as documented above in the HPI. - Constitutional Vitals: Temp Pulse Resp BP Pulse Ox 97.4 F L 82 16 120/47 94 08/06/17 09:11 08/06/17 13:12 08/06/17 13:12 08/06/17 13:12 08/06/17 13:12 General appearance: Present: mild distress, A&O X 3 - Head Head exam: Present: atraumatic, normocephalic - Eye Eye exam: Present: PERRL, conjuntiva pink, sclera anicteric Pupils: Present: PERRL - Neck Neck exam general surgery: Present: supple, trachea midline. Absent: lymphadenopathy - Respiratory Respiratory exam: Present: decreased breath sounds, respiratory distress. Absent: accessory muscle use, rales, rhonchi, wheezes - Cardiovascular Cardiovascular exam: Present: RRR, +S1, +S2. Absent: diastolic murmur, gallop, rubs, systolic murmur - GI/Abdominal GI/Abdominal exam: Present: normal bowel sounds, soft, no peritoneal signs. Absent: distended, tenderness - Extremities Exam Extremities exam: Present: warm, radial pulses palpable and symmetrical. Absent : calf tenderness, cyanotic, pedal edema - Neurological Exam Neurological exam: Present: CN II-XII intact, oriented X3, no focal deficits. Absent: pronater drift, facial droop, speech deficit - Skin Skin exam: Present: dry, intact Internal Med - H&P Results - Labs CBC & Chem 7: 08/06/17 09:36 08/06/17 09:36 - EKG Data EKG shows normal: sinus rhythm - Diagnostic Studies Other Images Additional comments: Chest X-Ray 08/06/17 09:12 IMPRESSION: 1. Left upper lobe density. In a patient with a history of lung cancer, consider CT for further evaluation. 2. Emphysema. D/ / Gagan Keith MD / Gagan Keith MD Interpreting Provider: Gagan Keith MD Cervical Spine CT 08/06/17 09:15 IMPRESSION: Multilevel degenerative disc disease and facet arthropathy within the cervical spine. No convincing evidence for acute fracture or malalignment. Left apical pleural thickening/scarring, incompletely included on the provided images. D/ / Javed Thayer MD / Javed Thayer MD Interpreting Provider: Javed Thayer MD Face CT 08/06/17 09:15 IMPRESSION: Acute traumatic comminuted fracture of the nasal bones with displacement and angulation. There is nondisplaced fracture involvement of the inferior frontal bone at level of inferior frontal sinus. Fracture involvement of the anterior bony nasal septum. The nasal spine and maxilla appear intact. D/ / Rusty Pedraza MD / Rusty Pedraza MD Interpreting Provider: Rusty Pedraza MD Head CT 08/06/17 09:15 IMPRESSION: 1. No acute intracranial abnormality. 2. Mild chronic microvascular ischemic change. 3. Scattered atherosclerosis of the intracranial vasculature. 4. Somewhat comminuted nasal bone fractures with leftward displacement. D/ / Grant Anderson MD / Grant Anderson MD Interpreting Provider: Grant Anderson MD
--- NOTE | 2017-08-06 15:50 | Event Note ---
Date of Encounter: 08/06/17 Time of Encounter: 15:50 Patient seen and examined with nurse practitioner. Agree with assessment and plan
[2017-08-06] MEDS: Ipratropium/Albuterol Neb 3 ML IH SCH ×3 (16:33→23:18)
[2017-08-06] MEDS: methylPREDNISolone 125 MG/2 ML VIAL IVP SCH ×2 (18:12→23:30)
[2017-08-06] MEDS: Benzonatate 100 MG CAPSULE PO PRN (22:18)
[2017-08-07] MEDS: Ipratropium/Albuterol Neb 3 ML IH SCH ×6 (03:54→23:01)
[2017-08-07 05:01] LABS: Basophils % 0.1 %; Hematocrit 41.7 % (35.3-44.9); Hemoglobin 13.8 g/dL (11.5-15.4); Immature Granulocytes % 0.7 % (0-4); Mean Corpuscular HGB Conc 33.1 g/dL (31.6-35.5); Mean Corpuscular Hemoglobin 30.5 pg (28.0-33.3); Mean Corpuscular Volume 92.3 fL (83.0-100.0); Mean Platelet Volume 9.3 fL (9.4-12.4); Monocytes # 0.2 K/mcL (0.0-1.3); Monocytes % 1.4 %; Neutrophils # 9.7 K/mcL (1.6-8.9); Platelet Count 249 K/mcL (140-400); Red Blood Count 4.52 M/mcL (3.82-4.97); Red Cell Distribution Width 13.2 % (11.5-14.5); Segmented Neutrophils % 88.8 %
[2017-08-07 05:35] LABS: BUN/Creatinine Ratio 16 (6-26); Blood Urea Nitrogen 9 mg/dL (8-23); Calcium 9.6 mg/dL (8.6-10.3); Carbon Dioxide 25 mEq/L (23-29); Chloride 102 mEq/L (98-107); Glucose 147 mg/dL (70-105); Osmolality,Calculated 287 (280-300); Potassium 3.8 mEq/L (3.5-5.1); Sodium 138 mEq/L (136-145); eGFR For African Americans > 60 (> 60); eGFR For Non-African Americans > 60 (> 60)
[2017-08-07] MEDS: *HR* Enoxaparin 40 MG/0.4 ML SYRINGE SQ SCH (05:46)
[2017-08-07] MEDS: methylPREDNISolone 125 MG/2 ML VIAL IVP SCH ×2 (05:47→12:25)
[2017-08-07] MEDS: Benzonatate 100 MG CAPSULE PO PRN ×3 (05:48→20:00)
[2017-08-07] MEDS ORDERED: Nicotine 14 MG PATCH.TD24 TD SCH (09:00)
[2017-08-07] MEDS: Levofloxacin 750 MG/150 ML 750 MG/150 ML BAG IVPB SCH (09:35)
--- NOTE | 2017-08-07 17:01 | Internal Med Progress Note ---
Date of Encounter: 08/07/17 Time of Encounter: 16:59 - Assessment and plan (1) Acute and chronic respiratory failure Current Visit: Yes Status: Acute Assessment and plan: Acute hypoxic respiratory failure secondary to acute COPD exacerbation due to possible acute community-acquired pneumonia, unknown agent Stop azithromycin, start Levaquin Continue IV steroids/Solu-Medrol, duo nebs Oxygen therapy Qualifiers: Respiratory failure complication: hypoxia Qualified Code(s): J96.21 - Acute and chronic respiratory failure with hypoxia (2) Community acquired pneumonia Current Visit: Yes Status: Acute Assessment and plan: Needs to have a CT scan of the chest within the next few weeks of the chest x- ray showed a left upper lobe opacity, she has history of lung cancer and received radiation Qualifiers: Laterality: right Lung location: upper lobe of lung Qualified Code(s): J18.1 - Lobar pneumonia, unspecified organism (3) Acute exacerbation of chronic obstructive airways disease Current Visit: Yes Status: Acute (4) Tobacco abuse Current Visit: No Status: Acute Assessment and plan: Smoking cessation counseling (5) Nasal bone fracture Current Visit: Yes Status: Acute Assessment and plan: Prefers to follow-up with ENT as an outpatient, the fracture occurred [address] scan showed: Acute traumatic comminuted fracture of the nasal bones with displacement and angulation. There is nondisplaced fracture involvement of the inferior frontal bone at level of inferior frontal sinus. Fracture involvement of the anterior bony nasal septum. The nasal spine and maxilla appear intact. Qualifiers: Encounter type: initial encounter Fracture type: closed Qualified Code(s) : S02.2XXA - Fracture of nasal bones, initial encounter for closed fracture - Subjective Interval history: Physical still short of breath, no chest pain, complains of pain over her nose but better than before, no fevers, no abdominal pain, no dysuria. - Constitutional Vitals: Temp Pulse Resp BP Pulse Ox 97.3 F L 103 18 119/78 98 08/07/17 16:28 08/07/17 16:28 08/07/17 16:28 08/07/17 16:28 08/07/17 16:28 General appearance: Present: mild distress, A&O X 3 Exam: Right orbital area ecchymosis Displacement of the nasal bones to the left - Head Head exam: Present: atraumatic, normocephalic - Eye Eye exam: Present: PERRL, conjuntiva pink, sclera anicteric Pupils: Present: PERRL - Neck Neck exam general surgery: Present: supple, trachea midline. Absent: lymphadenopathy - Respiratory Respiratory exam: Present: decreased breath sounds, CTAB, wheezes. Absent: accessory muscle use, rales, rhonchi - Cardiovascular Cardiovascular exam: Present: RRR, +S1, +S2. Absent: diastolic murmur, gallop, rubs, systolic murmur - GI/Abdominal GI/Abdominal exam: Present: normal bowel sounds, soft, no peritoneal signs. Absent: distended, tenderness - Extremities Exam Extremities exam: Present: warm, radial pulses palpable and symmetrical. Absent : calf tenderness, cyanotic, pedal edema - Neurological Exam Neurological exam: Present: CN II-XII intact, oriented X3, no focal deficits. Absent: pronater drift, facial droop, speech deficit - Skin Skin exam: Present: dry, intact Internal Medicine: Result - Labs CBC & Chem 7: 08/07/17 04:07 08/07/17 04:07 Labs: Short CBC 08/07/17 Range/Units 04:07 WBC 10.9 (4.3-11.1) K/mcL Hgb 13.8 (11.5-15.4) g/dL Hct 41.7 (35.3-44.9) % Plt Count 249 (140-400) K/mcL Neutrophils # 9.7 H (1.6-8.9) K/mcL BMP 08/07/17 04:07 Sodium 138 Potassium 3.8 Chloride 102 Carbon Dioxide 25 BUN 9 Creatinine 0.57 L Glucose 147 H Calcium 9.6 - ABG Interpretation ABG results: PT/INR, D-dimer PT 11.5 Seconds (9.4-12.1) 08/06/17 09:36 Consult Discharge Plan - Plan Referrals: Caleb Duenas MD [Primary Care Provider] -
[2017-08-07] MEDS ORDERED: Furosemide 20 MG TABLET PO PRN (17:03)
[2017-08-07] MEDS: Nicotine 14 MG PATCH.TD24 TD SCH (18:00)
[2017-08-07] MEDS: MethylPREDNISolone 40 MG/ML VIAL IVP SCH (20:00)
[2017-08-08] MEDS: Ipratropium/Albuterol Neb 3 ML IH SCH ×6 (03:38→23:48)
[2017-08-08] MEDS: *HR* Enoxaparin 40 MG/0.4 ML SYRINGE SQ SCH (05:22)
[2017-08-08] MEDS: Nicotine 14 MG PATCH.TD24 TD SCH (09:42)
[2017-08-08] MEDS: Levofloxacin 750 MG/150 ML 750 MG/150 ML BAG IVPB SCH (09:42)
[2017-08-08] MEDS: MethylPREDNISolone 40 MG/ML VIAL IVP SCH ×3 (09:42→21:10)
[2017-08-08] MEDS ORDERED: Lactulose Oral Soln 20 GM/30 ML UDC PO ONE (11:29)
[2017-08-08] MEDS ORDERED: Bisacodyl 10 MG RECTAL SUPPOSITORY RC PRN (11:32)
--- NOTE | 2017-08-08 11:42 | Pulmonology Consult Note ---
Date of Encounter: 08/08/17 Time of Encounter: 11:41 Assessment and Plan (1) Acute respiratory failure with hypoxia Current Visit: Yes Status: Acute This is secondary to acute exacerbation of COPD possibly attributable to pneumonia. Minimal oxygen requirement at present she has oxygen saturation of high 90s and approximately 2 L Wean FiO2 to keep saturation around 89-92% She will need walking pulse oximetry test prior to discharge Reinforce the need for early ambulation out of bed to chair and incentive spirometry Currently she is laying on her side and I believe this is contributing to VQ mismatching as a result of atelectasis I counseled her against this she is to sit up in bed or in a chair ideally (2) History of lung cancer Current Visit: Yes Status: Acute I have ordered a CT scan to evaluate the left upper lobe opacity which was a site of previous lung cancer to further delineate if this is infectious inflammatory possibly malignant (3) Acute exacerbation of chronic obstructive airways disease Current Visit: Yes Status: Acute I agree with scheduled DuoNeb's every 4-6 hours with albuterol every hour as needed Agree with IV steroids for another day with transition to prednisone 40 mg tomorrow with plan for two-week taper Be discharged with Symbicort 160/4.5 and go home to her scheduled nebulizer treatments which ended up being about 3 times a day Tobacco abuse currently in remission Clearly to exacerbations in the last 2 months is a red flag and she will need close pulmonary follow-up in 1-2 weeks at the time of discharge (4) DVT prophylaxis Current Visit: No Status: Acute Per routine she is on Lovenox which is appropriate (5) Tobacco abuse Current Visit: No Status: Acute Early remission denies cravings could be discharged with a nicotine patch Reinforced the need to remain tobacco free (6) Community acquired pneumonia Current Visit: Yes Status: Acute Possible pneumonia versus bronchitis as a result of her symptoms she has a left upper lobe opacity for which I ordered a CT of the thorax to further evaluate. Also added on respiratory infectious panel strep pneumo and Legionella antigen in the urine. Blood cultures have been obtained please obtain sputum culture possible If no clear evidence of pneumonia I suspect that she could be transitioned to Levaquin 500 mg to complete a week long course I counseled her on the need to be vigilant about any sort of muscle/tendon pain while on steroids clearly the lowest effective dose with this medication is the best option Qualifiers: Laterality: right Lung location: upper lobe of lung Qualified Code(s): J18.1 - Lobar pneumonia, unspecified organism History of Present Illness Consult date: 08/08/17 Requesting physician: Jaye Duval Reason for consult: COPD Chief complaint: Shortness of Breath History of present illness: This is a pleasant 72-year-old woman who was admitted for shortness of breath and being treated for a COPD exacerbation which pulmonary was consulted because of slow improvement in symptomatology despite treatment. Incidentally patient was noted to follow bed and fractured her nose and subsequent to this symptom started this was on . She has been complaining of increasing shortness of breath and cough that dates back to a hospitalization back in June but has been worse since the middle of last week. Denies fevers or chills hemoptysis or weight loss. She is a former smoker stopping about 2 weeks ago. She has a previous history of lung cancer that has been in remission is treated with radiotherapy and she is followed in the past with the cancer center here. 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 She is no exotic pets at home no family history of lung diseases. Past Med Surg Social Fam HX - Past Medical History Medical history: arthritis, cancer, COPD Psychiatric history: no psych history - Social History Smoking Status: Former smoker Smokeless Tobacco Status: No Alcohol use: occasionally Drug use: none - Family History Father Hx Family Cardiac Disorders: No Hx Family Respiratory Disorders: Yes (COPD) Hx Family Cancer: No Hx Family GI Disorders: No Hx Family Endocrine Disorder: No Hx Family Neuromuscular Disorders: No Hx Family Neurologic Disorders: No Hx Family HEENT Disorders: No Hx Family Autoimmune Disorders: No Medications and Allergies Furosemide [Lasix] 20 mg PO DAILY PRN 06/22/17 [History] Tramadol HCl [Ultram] 50 mg PO BID PRN 06/22/17 [History] Albuterol Sulfate [Ventolin Hfa] 2 puff IH Q4H PRN #10 [id number] 06/25/17 [Rx] Ipratropium/Albuterol Neb [Duoneb] 3 ml IH [id number] PRN #10 inhsol 06/25/17 [Rx] Nicotine Patch [Nicoderm] 14 mg TD DAILY #30 [email or web address] 06/25/17 [Rx] 3 Allergy/AdvReac Type Severity Reaction Status Date / Time Penicillins Allergy Rash Verified 08/06/17 09:24 Sulfa (Sulfonamide Allergy Rash Verified 08/06/17 09:24 Antibiotics) All Systems: A 10-system review of systems was performed and is negative for pertinent findings except as documented above in the HPI. Physical Examination Vital Signs: Vital Signs, Last 4 Hours Temp Pulse Resp BP Pulse Ox 08/08/17 11:33 97.9 F 77 16 125/68 98 General appearance: no acute distress Eyes: nonicteric, other (Right eye is noted to have ecchymosis) ENT: other (Nasal bridge is swollen and mildly erythematous) Effort: normal Auscultation: bilateral: diminished breath sounds, wheezes (Prolonged expiratory phase with expiratory wheezes noted throughout lung mercado) Cardiovascular: regular rate and rhythm Gastrointestinal: normoactive bowel sounds Integumentary: normal Extremities: no cyanosis, no edema, no clubbing Musculoskeletal: no deformities normal mental status, non-focal exam mood appropriate Results - Laboratory Findings CBC and BMP: 08/07/17 04:07 08/07/17 04:07 PT/INR, D-dimer PT 11.5 Seconds (9.4-12.1) 08/06/17 09:36 Abnormal lab findings: Abnormal lab results MPV 9.3 fL (9.4-12.4) L 08/07/17 04:07 Neutrophils # 9.7 K/mcL (1.6-8.9) H 08/07/17 04:07 Creatinine 0.57 mg/dL (0.60-1.20) L 08/07/17 04:07 Glucose 147 mg/dL (70-105) H 08/07/17 04:07 - Diagnostic Findings Chest x-ray: report reviewed, image reviewed - Clinical Findings Intake & Output: Intake & Output 08/07/17 08/08/17 08/08/17 23:59 07:59 15:59 Intake Total 120 / 120 Balance 120 / 120 Weight 73.21 kg Consult Discharge Plan - Plan Referrals: [facility] [Provider Group] Caleb Duenas MD [Primary Care Provider] -
[2017-08-08] MEDS: Famotidine 20 MG TABLET PO SCH ×2 (13:44→21:10)
[2017-08-08] MEDS: Benzonatate 100 MG CAPSULE PO PRN ×2 (13:44→21:14)
--- NOTE | 2017-08-08 16:53 | Internal Med Progress Note ---
Date of Encounter: 08/08/17 Time of Encounter: 16:50 - Assessment and plan (1) Acute exacerbation of chronic obstructive airways disease Current Visit: Yes Status: Acute Assessment and plan: Patient still with wheeze and very decreased overall. Continue Solu-Medrol 40 mg IV with transition to prednisone 40 mg in a.m. with plan for a two-week taper DuoNeb's every 4-6 hours Albuterol every hour as needed Pulmonology consulted and recommend close pulmonary follow-up in 1-2 weeks post discharge Continue tobacco cessation Patient to be discharged on Symbicort 160/4.5 and to continue her home nebulizer treatments 3 times a day (2) Acute and chronic respiratory failure Current Visit: Yes Status: Acute Assessment and plan: Acute hypoxic respiratory failure secondary to acute COPD exacerbation due to possible acute community-acquired pneumonia, unknown agent Continue Levaquin Continue IV steroids, Solu-Medrol, duo nebs, albuterol as needed Oxygen therapy titration Wean FiO2 to maintain saturations between 89-92% Walking pulse oximetry test prior to discharge Encourage ambulation and chair sitting Incentive spirometry Qualifiers: Respiratory failure complication: hypoxia Qualified Code(s): J96.21 - Acute and chronic respiratory failure with hypoxia (3) Community acquired pneumonia Current Visit: Yes Status: Acute Assessment and plan: Chest x-ray showed a left upper lobe opacity, she has history of lung cancer and received radiation Pulmonology consult obtained and recommendations reviewed CT of the chest has been ordered Respiratory infectious panel, strep pneumo and legionella antigens in the urine are pending Blood cultures pending Obtain sputum culture Continue Levaquin As per pulmonary if no clear evidence of pneumonia they would transition to Levaquin 500 mg to complete a week long course Qualifiers: Laterality: right Lung location: upper lobe of lung Qualified Code(s): J18.1 - Lobar pneumonia, unspecified organism (4) Tobacco abuse Current Visit: No Status: Acute Assessment and plan: Smoking cessation counseling, patient states she quit 2 weeks ago, however daughter states she continues to smoke continue cessation education nicoderm patch (5) Nasal bone fracture Current Visit: Yes Status: Acute Assessment and plan: Prefers to follow-up with ENT as an outpatient, the fracture occurred [address] scan showed: Acute traumatic comminuted fracture of the nasal bones with displacement and angulation. There is nondisplaced fracture involvement of the inferior frontal bone at level of inferior frontal sinus. Fracture involvement of the anterior bony nasal septum. The nasal spine and maxilla appear intact. Qualifiers: Encounter type: initial encounter Fracture type: closed Qualified Code(s) : S02.2XXA - Fracture of nasal bones, initial encounter for closed fracture (6) DVT prophylaxis Current Visit: No Status: Acute Assessment and plan: Continue Lovenox Ambulate/ OOB to chair - Subjective Interval history: Patient is lying in bed in no acute distress. She tells me that she fell out of bed 6 days ago and hit her head on a nightstand. She states she is generalized weak and dyspneic on exertion. She also complains of some dyspepsia and abdominal discomfort from constipation with no bowel movement since Sunday. She states she had a left upper lung cancer that was treated approximately 3 years ago and has been fine since. She also states she is having some difficulty with the oxygen as her nose is very dry in the nasal fracture is causing her some discomfort. She is aware she is to see an ENT as an outpatient. She also called her daughter and thought she was being discharged today before anybody rounded. I explained that should be here for a few more days to get her breathing more stabilized. We discussed a pulmonary consult and her tobacco use. She denies any fever, chills, chest pain or increasing shortness of breath. She states she is still coughing. He is utilizing oxygen at 3 L nasal cannula. She is eating with a fair appetite. - Constitutional Vitals: Temp Pulse Resp BP Pulse Ox 98.2 F 83 16 113/68 92 08/08/17 14:59 08/08/17 14:59 08/08/17 14:59 08/08/17 14:59 08/08/17 14:59 General appearance: Present: A&O X 3, pleasant, no acute distress, answers questions appropriately - Head Head exam: Present: atraumatic, normocephalic - Eye Eye exam: Present: conjuntiva pink, sclera anicteric Additional comments: fading ecchymosis around her right eye - Neck Neck exam general surgery: Present: supple, trachea midline. Absent: lymphadenopathy - Respiratory Respiratory exam: Present: decreased breath sounds, prolonged expiratory phase, wheezes. Absent: accessory muscle use, rales, rhonchi - Cardiovascular Cardiovascular exam: Present: RRR, +S1, +S2. Absent: diastolic murmur, gallop, rubs, systolic murmur - GI/Abdominal GI/Abdominal exam: Present: normal bowel sounds, soft, no peritoneal signs. Absent: distended, tenderness - Extremities Exam Extremities exam: Present: warm, radial pulses palpable and symmetrical. Absent : calf tenderness, cyanotic, pedal edema - Neurological Exam Neurological exam: Present: oriented X3, no focal deficits. Absent: pronater drift, facial droop, speech deficit - Skin Skin exam: Present: dry, intact Internal Medicine: Result - Labs CBC & Chem 7: 08/07/17 04:07 08/07/17 04:07 - ABG Interpretation ABG results: PT/INR, D-dimer PT 11.5 Seconds (9.4-12.1) 08/06/17 09:36 - Impressions Impressions Chest CT 08/08/17 13:30 IMPRESSION: 1. Lower lobe endobronchial secretions compatible with bronchitis on a background of COPD 2. Treatment related scarring in the left upper lobe at the site of a previous pulmonary nodule D/ / Sadi Acosta MD / Sadi Acosta MD Interpreting Provider: Sadi Acosta MD Consult Discharge Plan - Plan Referrals: [facility] [Provider Group] - 08/17/17 10:20 am Caleb Duenas MD [Primary Care Provider] -
--- NOTE | 2017-08-08 18:05 | Electrocardiograph Report ---
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
[2017-08-09] MEDS: Ipratropium/Albuterol Neb 3 ML IH SCH ×6 (03:56→23:48)
[2017-08-09] MEDS: *HR* Enoxaparin 40 MG/0.4 ML SYRINGE SQ SCH (05:57)
[2017-08-09 07:05] LABS: Adenovirus Not Detected (Not Detect); Bordetella Pertussis Not Detected (Not Detect); Chlamydophila pneumoniae Not Detected (Not Detect); Coronavirus 229E Not Detected (Not Detect); Coronavirus HKU1 Not Detected (Not Detect); Coronavirus NL63 Not Detected (Not Detect); Coronavirus OC43 Not Detected (Not Detect); Human Metapneumovirus Not Detected (Not Detect); Human Rhinovirus/Enterovirus Not Detected (Not Detect); Influenza A Subtype 2009 H1 Not Detected (Not Detect); Influenza A Untypeable Not Detected (Not Detect); Influenza B Not Detected (Not Detect); Mycoplasma pneumoniae Not Detected (Not Detect); Parainfluenza Virus 1 Not Detected (Not Detect); Parainfluenza Virus 2 Not Detected (Not Detect); Parainfluenza Virus 3 Not Detected (Not Detect); Parainfluenza Virus 4 Not Detected (Not Detect); Respiratory Syncytial Virus Not Detected (Not Detect)
[2017-08-09] MEDS: Nicotine 14 MG PATCH.TD24 TD SCH (08:03)
[2017-08-09] MEDS: Levofloxacin 750 MG/150 ML 750 MG/150 ML BAG IVPB SCH (08:03)
[2017-08-09] MEDS: MethylPREDNISolone 40 MG/ML VIAL IVP SCH ×2 (08:04→15:49)
[2017-08-09] MEDS: Famotidine 20 MG TABLET PO SCH ×2 (08:04→19:43)
--- NOTE | 2017-08-09 09:20 | Pulmonology Progress Note ---
Date of Encounter: 08/09/17 Time of Encounter: 09:20 Assessment and Plan (1) Acute respiratory failure with hypoxia Current Visit: Yes Status: Acute Wean FiO2 to keep saturation greater than 88% at all times she will need walking pulse test prior to discharge to qualify for home-going oxygen (2) History of lung cancer Current Visit: Yes Status: Acute I personally reviewed her CT scan there is no evidence of new lesion concerning for malignancy nor is there evidence of infectious pneumonia (3) Acute exacerbation of chronic obstructive airways disease Current Visit: Yes Status: Acute Transitioned to enteral steroids to complete two-week taper Symbicort twice a day with home nebulizer treatments 3 times a day and as needed albuterol Outpatient pulmonary follow-up in 1-2 weeks (4) Tobacco abuse Current Visit: No Status: Acute This is currently in remission I reinforced the need to remain tobacco free (5) Bronchitis Current Visit: Yes Status: Acute Acute bronchitis Agree with antimicrobials to complete 5-7 day course Levaquin at 500 mg dosing should be sufficient (6) DVT prophylaxis Current Visit: No Status: Acute Subjective Principal diagnosis: COPD exacerbation Interval history: Patient states that she is breathing much better today she wants to go home Objective PUL Vital signs: Last Vital Signs Temp 97.4 F L 08/09/17 06:44 Pulse 73 08/09/17 06:44 Resp 16 08/09/17 06:44 BP 128/74 08/09/17 06:44 Pulse Ox 96 08/09/17 06:44 General appearance: no acute distress Auscultation: bilateral: diminished breath sounds, wheezes (Faint expiratory wheeze much improved from prior to examination) Cardiovascular: regular rate and rhythm Extremities: no cyanosis, no edema normal mental status, non-focal exam Results - Laboratory Findings CBC and BMP: 08/07/17 04:07 08/07/17 04:07 PT/INR, D-dimer PT 11.5 Seconds (9.4-12.1) 08/06/17 09:36 Abnormal lab findings: Abnormal lab results MPV 9.3 fL (9.4-12.4) L 08/07/17 04:07 Neutrophils # 9.7 K/mcL (1.6-8.9) H 08/07/17 04:07 Creatinine 0.57 mg/dL (0.60-1.20) L 08/07/17 04:07 Glucose 147 mg/dL (70-105) H 08/07/17 04:07 - Diagnostic Findings CT scan - chest: report reviewed, image reviewed - Clinical Findings Intake & Output: Intake & Output 08/08/17 08/09/17 08/09/17 23:59 07:59 15:59 Intake Total 240 / 240 Balance 240 / 240 Consult Discharge Plan - Plan Referrals: [facility] [Provider Group] - 08/17/17 10:20 am Caleb Duenas MD [Primary Care Provider] -
--- NOTE | 2017-08-09 18:39 | Internal Med Progress Note ---
Date of Encounter: 08/09/17 Time of Encounter: 18:37 - Assessment and plan (1) Acute exacerbation of chronic obstructive airways disease Current Visit: Yes Status: Acute Assessment and plan: Patient with decreased wheeze and improved aeration Solu-Medrol was continued with transition to prednisone 40 mg in a.m. with plan for a two-week taper DuoNeb's every 4-6 hours Albuterol every hour as needed Pulmonology consulted and recommend close pulmonary follow-up in 1-2 weeks post discharge Continue tobacco cessation Patient to be discharged on Symbicort 160/4.5 and to continue her home nebulizer treatments 3 times a day (2) Acute and chronic respiratory failure Current Visit: Yes Status: Acute Assessment and plan: Acute hypoxic respiratory failure secondary to acute COPD exacerbation Continue Levaquin to treat bronchitis for 5-7 day course per pulmonology Discontinue Solu-Medrol and transitioned to oral prednisone, duo nebs, albuterol as needed Oxygen therapy titration with 6 minute walk test to determine home needs Wean FiO2 to maintain saturations between 89-92% Encourage ambulation and chair sitting Incentive spirometry Qualifiers: Respiratory failure complication: hypoxia Qualified Code(s): J96.21 - Acute and chronic respiratory failure with hypoxia (3) Community acquired pneumonia Current Visit: Yes Status: Ruled-out Assessment and plan: Chest x-ray showed a left upper lobe opacity, she has history of lung cancer and received radiation Pulmonology consult obtained and recommendations reviewed CT of the chest was reviewed by the pulmonary service and to his review there is no evidence of a new lesion concerning for malignancy nor is there evidence of infectious pneumonia Respiratory infectious panel negative strep pneumo and legionella antigens in the urine are pending Blood cultures no growth on preliminary reading Sputum was not sent for culture after an initial read Qualifiers: Laterality: right Lung location: upper lobe of lung Qualified Code(s): J18.1 - Lobar pneumonia, unspecified organism (4) Tobacco abuse Current Visit: No Status: Acute Assessment and plan: Smoking cessation counseling, patient states she quit 2 weeks ago, however daughter states she continues to smoke continue cessation education nicoderm patch (5) Nasal bone fracture Current Visit: Yes Status: Acute Assessment and plan: Prefers to follow-up with ENT as an outpatient, the fracture occurred [address] scan showed: Acute traumatic comminuted fracture of the nasal bones with displacement and angulation. There is nondisplaced fracture involvement of the inferior frontal bone at level of inferior frontal sinus. Fracture involvement of the anterior bony nasal septum. The nasal spine and maxilla appear intact. Qualifiers: Encounter type: initial encounter Fracture type: closed Qualified Code(s) : S02.2XXA - Fracture of nasal bones, initial encounter for closed fracture (6) DVT prophylaxis Current Visit: No Status: Acute Assessment and plan: Continue Lovenox Ambulate/ OOB to chair - Subjective Interval history: Patient states she feels a lot better today, she actually took a shower and put her makeup on. She has been taking her oxygen off and has been getting up to the chair. She denied chest pain, fever, chills, sweats, abdominal pain, constipation, urinary symptoms, syncope, or headache or other pain. Discussed outpatient follow-up with pulmonary should be arranged after discharge and also the need to follow-up with ENT for her nasal fracture. We will also do a 6 minute walk test to determine if she needs home oxygen. She is verbalizing understanding of all the plan and knows that she will not be discharged home tomorrow at the earliest. - Constitutional Vitals: Temp Pulse Resp BP Pulse Ox 98.0 F 77 18 130/73 91 08/09/17 15:36 08/09/17 15:36 08/09/17 15:42 08/09/17 15:36 08/09/17 15:42 General appearance: Present: cooperative, A&O X 3, pleasant, no acute distress, answers questions appropriately - Head Head exam: Present: atraumatic, normocephalic - Eye Eye exam: Present: conjuntiva pink, sclera anicteric (fading ecchymosis around her right eye status post fall at home) - Neck Neck exam general surgery: Present: supple, trachea midline. Absent: lymphadenopathy - Respiratory Respiratory exam: Present: decreased breath sounds, prolonged expiratory phase, wheezes (Much better airflow today with no bronchospasm on forced expiration, much fewer wheezes today and less harsh cough). Absent: accessory muscle use, chest wall tenderness, rales, rhonchi - Cardiovascular Cardiovascular exam: Present: RRR, +S1, +S2. Absent: diastolic murmur, gallop, rubs, systolic murmur - GI/Abdominal GI/Abdominal exam: Present: normal bowel sounds, soft, no peritoneal signs. Absent: distended, tenderness - Extremities Exam Extremities exam: Present: warm, radial pulses palpable and symmetrical. Absent : calf tenderness, cyanotic, pedal edema - Neurological Exam Neurological exam: Present: oriented X3, no focal deficits. Absent: pronater drift, facial droop, speech deficit - Skin Skin exam: Present: dry, intact Internal Medicine: Result - Labs CBC & Chem 7: 08/07/17 04:07 08/07/17 04:07 - ABG Interpretation ABG results: PT/INR, D-dimer PT 11.5 Seconds (9.4-12.1) 08/06/17 09:36 Consult Discharge Plan - Plan Referrals: [facility] [Provider Group] - 08/17/17 10:20 am [facility] [[facility]] Caleb Duenas MD [Primary Care Provider] -
[2017-08-10] MEDS: Ipratropium/Albuterol Neb 3 ML IH SCH ×3 (04:10→10:59)
[2017-08-10] MEDS: *HR* Enoxaparin 40 MG/0.4 ML SYRINGE SQ SCH (05:58)
[2017-08-10 07:18] VITALS: BP 148/85
[2017-08-10] MEDS: Famotidine 20 MG TABLET PO SCH (09:00)
[2017-08-10] MEDS ORDERED: predniSONE 20 MG TABLET PO SCH ×2 (09:00)
[2017-08-10] MEDS ORDERED: Levofloxacin 750 MG/150 ML 750 MG/150 ML BAG IVPB SCH (09:00)
[2017-08-10] MEDS: Nicotine 14 MG PATCH.TD24 TD SCH (09:01)
--- NOTE | 2017-08-10 09:30 | Discharge Summary ---
Date of Encounter: 08/10/17 Time of Encounter: 09:19 - Discharge Diagnosis (1) Acute exacerbation of chronic obstructive airways disease Priority: Primary Status: Acute Comments: 72 year old female past medical history of COPD and left upper lobe lung cancer with last treatment 3 years ago. Patient's fell out of bed 1 week ago while trying to roll over and she hit her head against a table. She did not lose consciousness, she did not seek medical attention after the fall. Patient had been experiencing progressively worsening shortness of breath over several days. She does have nebulizers and used them regularly without much improvement , Day of admission she woke up having difficulty breathing and presented to the ER with the above complaints. Upon presentation patient was found to be 85 % on room air and was placed on oxygen, given nebulizer treatments, and IV steroids. Chest x-ray demonstrated left upper lobe mass in patient with previous history of cancer, questionable pneumonia. CT imaging of head confirmed stable nasal bone fracture and small frontal bone fracture she has been admitted for further workup and evaluation. Patient was in some mild respiratory distress having episodes of coughing and conversational dyspnea. She was admitted. Continued aggressive treatment with IV steroids, DuoNeb nebs around the clock and albuterol as needed. Patient was slow to improve so consulted pulmonary service. CT of the chest was obtained with no evidence of new lesion concerning for malignancy nor any evidence of infectious pneumonia. Levaquin was continued to treat every bronchitis with a seven-day course recommended 500 mg. She will follow with pulmonary in 1-2 weeks. She will continue her Symbicort inhaler twice a day at home. She will also continue her DuoNeb nebulizer treatments 3 times a day and as needed albuterol. She will also be sent home on a prednisone taper. Transition to prednisone and taper over 2 weeks Continue Symbicort 2 times a day at home Home nebulizer treatments 3 times a day As needed albuterol nebulizer Close pulmonary follow-up in 1-2 weeks (2) Acute and chronic respiratory failure Priority: Primary Status: Acute Comments: 6 minute walk test completed and showed no need for home oxygen Qualifiers: Respiratory failure complication: hypoxia Qualified Code(s): J96.21 - Acute and chronic respiratory failure with hypoxia (3) Tobacco abuse Priority: Primary Status: Acute Comments: Tobacco cessation recommended (4) Acute bronchitis Priority: Primary Status: Acute Comments: Coughing has improved, continue Levaquin to complete a 7 day course Qualifiers: Bronchitis organism: unspecified organism Qualified Code(s): J20.9 - Acute bronchitis, unspecified (5) Nasal bone fracture Priority: Primary Status: Acute Comments: CT of the face showed stable nasal fracture, patient will follow up with ENT as an outpatient Qualifiers: Encounter type: initial encounter Fracture type: closed Qualified Code(s) : S02.2XXA - Fracture of nasal bones, initial encounter for closed fracture - Discharge Medications Prescriptions: Albuterol Neb [Proventil Neb] 2.5 mg IH Q2H PRN #90 inhsol PRN Reason: Shortness Of Breath/Wheezing Benzonatate [Tessalon] 100 mg PO TID PRN #30 capsule PRN Reason: Cough Ipratropium/Albuterol Neb [Duoneb] 3 ml IH TID #90 inhsol predniSONE [PredniSONE] 10 mg PO DAILY #30 tablet Home Medications: Furosemide [Lasix] 20 mg PO DAILY PRN 06/22/17 [History] Tramadol HCl [Ultram] 50 mg PO BID PRN 06/22/17 [History] Albuterol Sulfate [Ventolin Hfa] 2 puff IH Q4H PRN #10 hfa.[id number].[id number] 06/25/17 [Rx] Ipratropium/Albuterol Neb [Duoneb] 3 ml IH [id number] PRN #10 inhsol 06/25/17 [Rx] Nicotine Patch [Nicoderm] 14 mg TD DAILY #30 patch.[id number] 06/25/17 [Rx] Albuterol Neb [Proventil Neb] 2.5 mg IH Q2H PRN #90 inhsol 08/10/17 [Rx] Benzonatate [Tessalon] 100 mg PO TID PRN #30 capsule 08/10/17 [Rx] Ipratropium/Albuterol Neb [Duoneb] 3 ml IH TID #90 inhsol 08/10/17 [Rx] predniSONE [PredniSONE] 10 mg PO DAILY #30 tablet 08/10/17 [Rx] Allergies/Adverse Reactions: 3 Allergy/AdvReac Type Severity Reaction Status Date / Time Penicillins Allergy Rash Verified 08/06/17 09:24 Sulfa (Sulfonamide Allergy Rash Verified 08/06/17 09:24 Antibiotics) Procedures/tests Complete & Pending: Procedures Performed prior 72 hours Category Date Time Status CT chest wo con [CT] Routine Cat Scan 08/08/17 13:30 Completed Date of admission: 08/06/17 14:13 Primary care physician: Caleb Peterson Consults: 08/07/17 01:59 Consult to University Administrator [CONS] Routine Reason for SW Consult: Pt mentions wanting HH aides, may need home O2 at DC 08/08/17 11:34 Consult to Pulmonology [CONS] Routine Consulting Provider: [facility] Reason for Consult: Ex COPD with poor response to treatment Time Notified: 11:34 Call Completed: Yes Discharging clinician: Jaye Duval Anticipated date of discharge: 08/10/17 - Patient Status Disposition: Home, Self-Care Condition: Good Functional capacity at discharge: independent ambulation - Discharge Instructions Follow Up With: [facility] [Provider Group] - 08/17/17 10:20 am [facility] [[facility]] Caleb Duenas MD [Primary Care Provider] - - Diet and Activity Activity: resume usual activities as tolerated Interval History: Patient feels much better today. She feels very ready to go home. She states her coughing is much improved and she feels her breathing is much better. She denies any fever or chills chest pain shortness of breath abdominal pain and constipation or difficulty urinating. She did say she had some hot flashes last night but that is not a new finding for her and she is also on steroids. She is very happy she did not need oxygen on discharge Hospital course: Please see details under assessment and plan Time spent discussing smoking cessation with patient: 3 to 10 minutes - Time Spent with Patient Total time spent providing and/or coordinating discharge services: Less than 30 minutes - Constitutional Vitals: Temp Pulse Resp BP Pulse Ox 97.5 F L 66 18 148/85 95 08/10/17 07:18 08/10/17 07:18 08/10/17 08:15 08/10/17 07:18 08/10/17 08:15 General appearance: Present: cooperative, A&O X 3, pleasant, no acute distress, answers questions appropriately - Head Head exam: Present: atraumatic, normocephalic - Eye Eye exam: Present: conjuntiva pink, sclera anicteric Additional comments: Ecchymosis right eye is fading - ENT Additional comments: Some swelling and discoloration over the bridge of the nose but no drainage from the nose - Neck Neck exam general surgery: Present: supple, trachea midline. Absent: lymphadenopathy - Respiratory Respiratory exam: Present: decreased breath sounds, wheezes. Absent: accessory muscle use, rales, rhonchi Additional comments: Very mild wheezes with forced expiration, no bronchospasm, and no accessory muscle use - Cardiovascular Cardiovascular exam: Present: RRR, +S1, +S2. Absent: diastolic murmur, gallop, rubs, systolic murmur - GI/Abdominal GI/Abdominal exam: Present: normal bowel sounds, soft, no peritoneal signs. Absent: distended, tenderness - Extremities Exam Extremities exam: Present: warm, radial pulses palpable and symmetrical. Absent : calf tenderness, cyanotic, pedal edema - Neurological Exam Neurological exam: Present: oriented X3, no focal deficits. Absent: pronater drift, facial droop, speech deficit - Skin Skin exam: Present: dry, intact, warm
== END 2017-08-10 12:56 | disposition home or self-care (01) ==
LOC: 3BNU 09:08 → EMEROO 09:08 → 3BNU 15:41
PROVIDERS: ADMIT Registered Nurse; ATTEND Registered Nurse